=== PATIENT | male | born 1995 | race African-American/Black ===

== ENCOUNTER 2017-07-18 18:58 | Emergency (ER) | payer MEDICAID ==
[~2017-07-18] VITALS: Ht 185.4 cm; Wt 71.0 kg
[~2017-07-18 18:58] MED LIST: DIPH25CA83 PO; FOLI-43 PO; HYDREA PO
[2017-07-19 04:31] LABS: BASOPHILS % 0.8 % (0.0-2.0); EOSINOPHILS % 2.9 % (0.0-5.0); HEMATOCRIT. 23.5 % (42.0-52.0); HEMOGLOBIN. 8.5 g/dL (14.0-18.0); LYMPHOCYTES % 31.8 % (20.0-50.0); MEAN CORPUSCULAR HEMOGLOBIN 25.6 pg (28.0-32.0); MEAN PLATELET VOLUME 10.1 fl (7.4-10.4); MONOCYTES % 12.2 % (2.0-8.0); NEUTROPHILS % 52.3 % (40.0-76.0); PLATELET 228 x1000/uL (130-400); RED BLOOD CELL COUNT 3.31 mill/uL (4.7-6.1); RED CELL DISTRIBUTION WIDTH 24.6 % (11.6-14.6)
[2017-07-19 04:51] LABS: CARBON DIOXIDE 29 mEq/L (21-32); CHLORIDE 106 mEq/L (98-107)
[2017-07-19] MEDS ORDERED: MORPHINE SULFATE 4 MG/ML CPJ (NOT FOR IM USE) IV STA (05:09)
[2017-07-19] MEDS ORDERED: SODIUM CHLORIDE 0.9% 1,000 ML IV ONE (05:09)
[2017-07-19 06:14] LABS: CLARITY URINE CLEAR (CLEAR); COLOR URINE DARK YELLOW (YELLOW); GLUCOSE URINE NEGATIVE (NEGATIVE); KETONES URINE NEGATIVE (NEGATIVE); LEUKOCYTE ESTERASE URINE NEGATIVE (NEGATIVE); NITRITE URINE NEGATIVE (NEGATIVE); OCCULT BLOOD URINE NEGATIVE (NEGATIVE); PH URINE 5.5 (4.5-8.0); PROTEIN URINE NEGATIVE (NEGATIVE); SPECIFIC GRAVITY URINE 1.014 (1.005-1.030)
[2017-07-19] MEDS ORDERED: CEFTRIAXONE 1 G PREMIX 50 ML IV ONE (06:15)
[2017-07-19 06:24] LABS: *AMPHETAMINES SCREEN URINE NEGATIVE (NEGATIVE); *BARBITURATES SCREEN URINE NEGATIVE (NEGATIVE); *BENZODIAZEPINES SCREEN URINE NEGATIVE (NEGATIVE); *COCAINE SCREEN URINE NEGATIVE (NEGATIVE); CANNABINOID URINE SCREEN NEGATIVE (NEGATIVE); METHADONE URINE SCREEN NEGATIVE (NEGATIVE); OPIATES URINE SCREEN NEGATIVE (NEGATIVE); PHENCYCLIDINE URINE SCREEN NEGATIVE (NEGATIVE)
[2017-07-19] MEDS ORDERED: FAMOTIDINE 20MG/2ML VIAL IV ONE (07:30)
[2017-07-19 07:53] LABS: CARBON DIOXIDE 28 mEq/L (21-32); CHLORIDE 107 mEq/L (98-107)
[2017-07-19 09:20] VITALS: BP 117/60
== END 2017-07-19 09:32 | disposition home or self-care (01) ==
LOC: ER 18:58
DX: N48.89 Other specified disorders of penis (principal); D57.1 Sickle-cell disease without crisis; D64.9 Anemia, unspecified
CPT/HCPCS: 36415; 80048; 80053; 80305; 81001; 83690; 85025; 85044; 96361; 96365; 96375; 99284; J0696; J2270; J7030; Z7610

== ENCOUNTER 2020-06-17 01:11 | Emergency (ER) | payer MEDICAID, OTHER ==
[~2020-06-17] VITALS: Ht 180.3 cm; Wt 64.0 kg
[2020-06-17] MEDS ORDERED: SODIUM CHLORIDE 0.9% 1,000 ML IV ONE (02:16)
[2020-06-17] MEDS ORDERED: OLANZAPINE 10 MG/VIAL IM ONE (02:30)
[2020-06-17 03:07] LABS: BASOPHILS % 0.5 % (0.0-2.0); EOSINOPHILS % 1.5 % (0.0-5.0); HEMOGLOBIN. 8.9 g/dL (14.0-18.0); LYMPHOCYTES % 22.6 % (20.0-50.0); MEAN CORPUSCULAR HEMOGLOBIN 27.3 pg (28.0-32.0); MEAN CORPUSCULAR VOLUME 76.5 fL (80.0-94.0); MEAN PLATELET VOLUME 9.9 fl (7.4-10.4); MONOCYTES % 11.2 % (2.0-8.0); NEUTROPHILS % 64.2 % (40.0-76.0); PLATELET 279 x1000/uL (130-400); RED BLOOD CELL COUNT 3.27 mill/uL (4.7-6.1); RED CELL DISTRIBUTION WIDTH 23.3 % (11.6-14.6)
[2020-06-17 03:09] LABS: PLATELET ESTIMATE NORMAL
[2020-06-17 03:10] LABS: CHLORIDE 105 mEq/L (98-107)
[2020-06-17 03:12] LABS: ETHANOL BLOOD < 10 mg/dL
[2020-06-17] MEDS ORDERED: BACITRACIN ZINC OINT UDPKT TOP ONE (04:00)
[2020-06-17] MEDS: KETOROLAC 30MG/ML VIAL IV SCH ×2 (05:55→06:44)
[2020-06-17 06:23] LABS: CLARITY URINE CLEAR (CLEAR); COLOR URINE DARK YELLOW (YELLOW); KETONES URINE NEGATIVE (NEGATIVE); LEUKOCYTE ESTERASE URINE NEGATIVE (NEGATIVE); NITRITE URINE NEGATIVE (NEGATIVE); OCCULT BLOOD URINE NEGATIVE (NEGATIVE); PROTEIN URINE NEGATIVE (NEGATIVE)
[2020-06-17 06:35] LABS: *AMPHETAMINES SCREEN URINE NEGATIVE (NEGATIVE); *BARBITURATES SCREEN URINE NEGATIVE (NEGATIVE); *BENZODIAZEPINES SCREEN URINE NEGATIVE (NEGATIVE); *COCAINE SCREEN URINE NEGATIVE (NEGATIVE); METHADONE URINE SCREEN NEGATIVE (NEGATIVE); OPIATES URINE SCREEN NEGATIVE (NEGATIVE)
[2020-06-17 06:36] LABS: CANNABINOID URINE SCREEN NEGATIVE (NEGATIVE); PHENCYCLIDINE URINE SCREEN NEGATIVE (NEGATIVE)
[2020-06-17 07:58] VITALS: BP 103/71
== END 2020-06-17 08:01 | disposition home or self-care (01) ==
LOC: ER 01:11
DX: M79.631 Pain in right forearm (principal); S80.212A Abrasion, left knee, initial encounter; S50.01XA Contusion of right elbow, initial encounter; D57.1 Sickle-cell disease without crisis; D64.9 Anemia, unspecified; V43.52XA Car driver injured in collision with other type car in traffic accident, initial encounter; Y93.9 Activity, unspecified; Y92.410 Unspecified street and highway as the place of occurrence of the external cause; Z90.49 Acquired absence of other specified parts of digestive tract
CPT/HCPCS: 36415; 70450; 70486; 71045; 72125; 73080; 73090; 73562; 80053; 80305; 80307; 80320; 80329; 81003; 82140; 83690; 85025; 93005; 96361; 96372; 96374; 99285; J1885; J3490; J7030; G0480

== ENCOUNTER 2020-06-17 11:12 | Emergency (ER) | payer OTHER ==
[~2020-06-17] VITALS: Ht 185.4 cm; Wt 64.0 kg
[2020-06-17] MEDS ORDERED: HYDROCODONE/ACETAMINOPHEN 5/325MG TABLET PO ONE (11:45)
[2020-06-17 13:24] VITALS: BP 155/68
== END 2020-06-17 13:24 | disposition home or self-care (01) ==
LOC: ER 11:21
DX: M79.631 Pain in right forearm (principal); R07.81 Pleurodynia; V43.52XA Car driver injured in collision with other type car in traffic accident, initial encounter; Y93.9 Activity, unspecified; Y92.410 Unspecified street and highway as the place of occurrence of the external cause
CPT/HCPCS: 99283

== ENCOUNTER 2021-01-13 00:50 | Emergency (ER) | payer MEDICAID, OTHER ==
[~2021-01-13] VITALS: Ht 188 cm; Wt 65.0 kg
[~2021-01-13 00:50] MED LIST changes: -DIPH25CA83 PO; +HYDR500C18 PO; -HYDREA PO
[2021-01-13] MEDS ORDERED: KETOROLAC 60MG/2ML VIAL IM ONE (01:15)
[2021-01-13 02:08] VITALS: BP 125/75
[2021-01-13] MEDS ORDERED: AMOX-424 MT (02:40)
[2021-01-13] MEDS ORDERED: IBUP-2029 MT (02:40)
== END 2021-01-13 03:39 | disposition home or self-care (01) ==
LOC: ER 00:50
DX: K04.01 Reversible pulpitis (principal); D57.1 Sickle-cell disease without crisis
CPT/HCPCS: 96372; 99283; J1885

== ENCOUNTER 2021-01-13 03:43 | Emergency (ER) | payer MEDICAID ==
[~2021-01-13] VITALS: Ht 188 cm; Wt 94.0 kg
[~2021-01-13 03:43] MED LIST changes: +AMOX-424 MT; +IBUP-2029 MT
[2021-01-13 03:45] VITALS: BP 129/64
== END 2021-01-13 04:11 | disposition home or self-care (01) ==
LOC: ER 03:43
DX: R10.9 Unspecified abdominal pain (principal); D57.1 Sickle-cell disease without crisis
CPT/HCPCS: 99281

== ENCOUNTER 2021-09-04 03:11 | Inpatient (IN) | payer MEDICAID, OTHER ==
[~2021-09-04] VITALS: Ht 188 cm; Wt 66.7 kg
[2021-09-04] MEDS ORDERED: ONDANSETRON HCL 4MG/2ML INJ IV STA (04:01)
[2021-09-04] MEDS ORDERED: MORPHINE SULFATE 4 MG/ML CPJ (NOT FOR IM USE) IV STA (04:01)
[2021-09-04] MEDS ORDERED: SODIUM CHLORIDE 0.9% 1,000 ML IV ONE (04:15)
[2021-09-04] MEDS ORDERED: MORPHINE SULFATE 2 MG/ML CPJ (NOT FOR IM USE) IV NR (04:15)
[2021-09-04 04:26] LABS: CHLORIDE 107 mEq/L (98-107)
[2021-09-04 04:28] LABS: BASOPHILS % 1.2 % (0.0-2.0); HEMATOCRIT. 26.2 % (42.0-52.0); HEMOGLOBIN. 9.1 g/dL (14.0-18.0); LYMPHOCYTES % 37.5 % (20.0-50.0); MEAN CORPUSCULAR HEMOGLOBIN 26.5 pg (28.0-32.0); MEAN CORPUSCULAR VOLUME 76.3 fL (80.0-94.0); MEAN PLATELET VOLUME 10.8 fl (7.4-10.4); MONOCYTES % 12.6 % (2.0-8.0); NEUTROPHILS % 46.7 % (40.0-76.0); PLATELET 229 x1000/uL (130-400); RED BLOOD CELL COUNT 3.44 mill/uL (4.7-6.1); RED CELL DISTRIBUTION WIDTH 21.6 % (11.6-14.6)
[2021-09-04] MEDS ORDERED: IBUP-2028 MT (06:31)
[2021-09-04] MEDS ORDERED: HYDR-4001 MT (06:31)
[2021-09-04 06:39] LABS: CLARITY URINE CLEAR (CLEAR); COLOR URINE DARK YELLOW (YELLOW); SPECIFIC GRAVITY URINE 1.011 (1.005-1.030)
[2021-09-04 06:41] LABS: KETONES URINE NEGATIVE (NEGATIVE); LEUKOCYTE ESTERASE URINE TRACE (NEGATIVE); NITRITE URINE NEGATIVE (NEGATIVE); OCCULT BLOOD URINE NEGATIVE (NEGATIVE); PROTEIN URINE NEGATIVE (NEGATIVE)
[2021-09-04] MEDS ORDERED: MORPHINE SULFATE 4 MG/ML CPJ (NOT FOR IM USE) IV ONE ×2 (07:45→10:30)
[2021-09-04] MEDS ORDERED: MORPHINE SULFATE 2 MG/ML CPJ (NOT FOR IM USE) IV ONE (08:15)
[2021-09-04] MEDS: MORPHINE SULFATE 2 MG/ML CPJ (NOT FOR IM USE) IV NR ×2 (11:16→13:49)
[2021-09-04] MEDS ORDERED: ACETAMINOPHEN 325MG TABLET PO PRN (13:15)
[2021-09-04] MEDS ORDERED: CLONIDINE 0.1MG TABLET PO PRN (13:15)
[2021-09-04] MEDS ORDERED: ONDANSETRON HCL 4MG/2ML INJ IV PRN (13:15)
[2021-09-04] MEDS: SODIUM CHLORIDE 0.9% 1,000 ML IV SCH (13:30)
[2021-09-04] MEDS: HYDROMORPHONE HCL/PF 2MG/ML CPJ IV PRN ×4 (16:04→22:12)
[2021-09-04] MEDS: ENOXAPARIN 40MG/0.4ML SYR SUBCUT SCH (16:06)
[2021-09-04] MEDS: DIPHENHYDRAMINE 50MG/ML VIAL IV PRN ×2 (16:51→21:21)
[2021-09-04 21:49] VITALS: BP 129/71
[2021-09-04 22:00] VITALS: BP 129/71
[2021-09-05] VITALS: BP 132/73
[2021-09-05] MEDS: SODIUM CHLORIDE 0.9% 1,000 ML IV SCH ×3 (00:56→13:24)
[2021-09-05] MEDS: HYDROMORPHONE HCL/PF 2MG/ML CPJ IV PRN ×7 (01:13→21:58)
[2021-09-05 04:00] VITALS: BP 129/68
[2021-09-05] MEDS: DIPHENHYDRAMINE 50MG/ML VIAL IV PRN ×3 (04:55→22:45)
[2021-09-05 08:00] VITALS: BP 131/69
[2021-09-05 12:00] VITALS: BP 128/72
[2021-09-05] MEDS ORDERED: HYDROMORPHONE HCL/PF 2MG/ML CPJ IV PRN (12:00)
[2021-09-05] MEDS ORDERED: NALOXONE HCL 0.4MG/ML VIAL IV PRN (12:15)
[2021-09-05] MEDS: FOLIC ACID 1MG TABLET PO SCH (13:10)
[2021-09-05] MEDS: ENOXAPARIN 40MG/0.4ML SYR SUBCUT SCH (15:32)
[2021-09-05 16:00] VITALS: BP 135/70
[2021-09-05 20:00] VITALS: BP 130/60
[2021-09-06] VITALS: BP 129/74
[2021-09-06] MEDS: HYDROMORPHONE HCL/PF 2MG/ML CPJ IV PRN ×7 (00:13→20:23)
[2021-09-06 03:00] VITALS: BP 119/57
[2021-09-06] MEDS: DIPHENHYDRAMINE 50MG/ML VIAL IV PRN ×4 (03:40→20:54)
[2021-09-06] MEDS: SODIUM CHLORIDE 0.9% 1,000 ML IV SCH ×2 (06:04→15:46)
[2021-09-06 08:00] VITALS: BP 117/69
[2021-09-06] MEDS: FOLIC ACID 1MG TABLET PO SCH (08:47)
[2021-09-06 12:00] VITALS: BP 123/66
[2021-09-06] MEDS: HYDROXYUREA 500MG CAPSULE PO SCH (13:59)
[2021-09-06] MEDS: ENOXAPARIN 40MG/0.4ML SYR SUBCUT SCH ×2 (15:00→15:46)
[2021-09-06 16:00] VITALS: BP 126/70
[2021-09-06 20:00] VITALS: BP 134/82
[2021-09-07] VITALS: BP 140/73
[2021-09-07] MEDS: SODIUM CHLORIDE 0.9% 1,000 ML IV SCH ×3 (00:35→22:45)
[2021-09-07] MEDS: HYDROMORPHONE HCL/PF 2MG/ML CPJ IV PRN ×5 (00:38→22:45)
[2021-09-07] MEDS: DIPHENHYDRAMINE 50MG/ML VIAL IV PRN ×4 (01:31→16:05)
[2021-09-07 04:00] VITALS: BP 108/70
[2021-09-07 08:00] VITALS: BP 117/60
[2021-09-07] MEDS: FOLIC ACID 1MG TABLET PO SCH (08:49)
[2021-09-07] MEDS: HYDROXYUREA 500MG CAPSULE PO SCH ×2 (08:49→16:21)
[2021-09-07 12:00] VITALS: BP 120/67
[2021-09-07] MEDS: ENOXAPARIN 40MG/0.4ML SYR SUBCUT SCH (15:00)
[2021-09-07 16:00] VITALS: BP 122/68
[2021-09-07 16:23] LABS: BASOPHILS % 0.7 % (0.0-2.0); EOSINOPHILS % 4.5 % (0.0-5.0); HEMATOCRIT. 23.8 % (42.0-52.0); HEMOGLOBIN. 8.7 g/dL (14.0-18.0); LYMPHOCYTES % 17.1 % (20.0-50.0); MEAN CORPUSCULAR HEMOGLOBIN 27.1 pg (28.0-32.0); MEAN CORPUSCULAR VOLUME 74.5 fL (80.0-94.0); MEAN PLATELET VOLUME 10.8 fl (7.4-10.4); MONOCYTES % 14.1 % (2.0-8.0); NEUTROPHILS % 63.6 % (40.0-76.0); PLATELET 198 x1000/uL (130-400); RED BLOOD CELL COUNT 3.19 mill/uL (4.7-6.1); RED CELL DISTRIBUTION WIDTH 24.6 % (11.6-14.6)
[2021-09-07 17:02] LABS: CHLORIDE 104 mEq/L (98-107)
[2021-09-07 20:00] VITALS: BP 120/65
[2021-09-08] VITALS: BP 127/76
[2021-09-08] MEDS: DIPHENHYDRAMINE 50MG/ML VIAL IV PRN ×3 (00:10→10:35)
[2021-09-08] MEDS: HYDROMORPHONE HCL/PF 2MG/ML CPJ IV PRN ×3 (03:00→14:24)
[2021-09-08 04:00] VITALS: BP 121/68
[2021-09-08] MEDS: SODIUM CHLORIDE 0.9% 1,000 ML IV SCH (07:30)
[2021-09-08 08:00] VITALS: BP 115/55
[2021-09-08] MEDS: FOLIC ACID 1MG TABLET PO SCH (08:45)
[2021-09-08] MEDS: HYDROXYUREA 500MG CAPSULE PO SCH (08:45)
[2021-09-08 14:12] VITALS: BP 115/55
[2021-09-08] MEDS ORDERED: HYDR-4001 MT (15:48)
[2021-09-08 16:00] VITALS: BP 129/71
== END 2021-09-08 18:50 | disposition home or self-care (01) | DRG 662 ==
LOC: ER 03:11 → EDBEDREQ 12:40 → EDBEDREQTM 12:40 → ENRESERV 20:27 → 8WST 21:00 → 6EST 09-06 03:03
PROVIDERS: ADMIT Internal Medicine; ATTEND Internal Medicine
DX: D57.00 Hb-SS disease with crisis, unspecified (principal); E80.6 Other disorders of bilirubin metabolism; J32.9 Chronic sinusitis, unspecified; Z79.1 Long term (current) use of non-steroidal anti-inflammatories (NSAID); Z79.899 Other long term (current) drug therapy; Z90.49 Acquired absence of other specified parts of digestive tract
CPT/HCPCS: 36415; 71045; 73130; 74176; 80048; 80053; 81003; 82248; 85025; 85044; 85660; 93005; 93970; 99285; J1170; J1200; J1650; J2270; J2405; J7030

== ENCOUNTER 2021-10-26 23:08 | Emergency (ER) | payer MEDICAID, OTHER ==
[~2021-10-26] VITALS: Ht 188 cm; Wt 64.0 kg
[~2021-10-26 23:08] MED LIST changes: +HYDR-4001 MT; +IBUP-2028 MT
[2021-10-27] MEDS ORDERED: MORPHINE SULFATE 4 MG/ML CPJ (NOT FOR IM USE) IV STA (02:18)
[2021-10-27] MEDS ORDERED: SODIUM CHLORIDE 0.9% 1,000 ML IV ONE ×2 (02:30→06:30)
[2021-10-27] MEDS ORDERED: IBUP-2029 MT (03:25)
[2021-10-27 03:57] LABS: CHLORIDE 106 mEq/L (98-107)
[2021-10-27 04:00] LABS: BASOPHILS % 0.7 % (0.0-2.0); EOSINOPHILS % 2.4 % (0.0-5.0); HEMATOCRIT. 24.3 % (42.0-52.0); HEMOGLOBIN. 8.7 g/dL (14.0-18.0); LYMPHOCYTES % 35.1 % (20.0-50.0); MEAN CORPUSCULAR HEMOGLOBIN 27.7 pg (28.0-32.0); MEAN CORPUSCULAR VOLUME 77.2 fL (80.0-94.0); MEAN PLATELET VOLUME 10.4 fl (7.4-10.4); MONOCYTES % 14.3 % (2.0-8.0); NEUTROPHILS % 47.5 % (40.0-76.0); PLATELET 254 x1000/uL (130-400); RED BLOOD CELL COUNT 3.15 mill/uL (4.7-6.1); RED CELL DISTRIBUTION WIDTH 23.5 % (11.6-14.6)
[2021-10-27] MEDS ORDERED: DIPHENHYDRAMINE 50MG/ML VIAL IV ONE (05:15)
[2021-10-27] MEDS ORDERED: KETOROLAC 30MG/ML VIAL IV STA (06:21)
[2021-10-27 06:46] LABS: CLARITY URINE CLEAR (CLEAR); COLOR URINE DARK YELLOW (YELLOW); KETONES URINE NEGATIVE (NEGATIVE); LEUKOCYTE ESTERASE URINE TRACE (NEGATIVE); NITRITE URINE NEGATIVE (NEGATIVE); OCCULT BLOOD URINE NEGATIVE (NEGATIVE); PH URINE 6.5 (4.5-8.0); PROTEIN URINE NEGATIVE (NEGATIVE); SPECIFIC GRAVITY URINE 1.014 (1.005-1.030)
[2021-10-27 09:05] VITALS: BP 114/63
== END 2021-10-27 09:07 | disposition home or self-care (01) ==
LOC: ER 23:08
DX: D57.00 Hb-SS disease with crisis, unspecified (principal)
CPT/HCPCS: 36415; 71045; 73130; 80053; 81003; 83690; 85025; 85044; 96361; 96374; 96375; 99284; J1200; J1885; J2270; J7030

== ENCOUNTER 2021-10-27 09:08 | Inpatient (IN) | payer OTHER ==
[~2021-10-27] VITALS: Ht 182.9 cm; Wt 63.7 kg
[2021-10-27] MEDS ORDERED: MORPHINE SULFATE 4 MG/ML CPJ (NOT FOR IM USE) IV STA (09:29)
[2021-10-27] MEDS ORDERED: KETOROLAC 30MG/ML VIAL IV STA (09:29)
[2021-10-27] MEDS ORDERED: ONDANSETRON HCL 4MG/2ML INJ IV STA (09:29)
[2021-10-27] MEDS ORDERED: SODIUM CHLORIDE 0.9% 1,000 ML IV ONE (09:30)
[2021-10-27] MEDS ORDERED: DIPHENHYDRAMINE 50MG/ML VIAL IV ONE (10:00)
[2021-10-27 10:13] LABS: BASOPHILS % 0.7 % (0.0-2.0); EOSINOPHILS % 2.5 % (0.0-5.0); HEMATOCRIT. 24.2 % (42.0-52.0); HEMOGLOBIN. 8.7 g/dL (14.0-18.0); LYMPHOCYTES % 32.1 % (20.0-50.0); MEAN CORPUSCULAR HEMOGLOBIN 27.5 pg (28.0-32.0); MEAN CORPUSCULAR VOLUME 76.4 fL (80.0-94.0); MEAN PLATELET VOLUME 10.1 fl (7.4-10.4); MONOCYTES % 14.9 % (2.0-8.0); NEUTROPHILS % 49.8 % (40.0-76.0); PLATELET 242 x1000/uL (130-400); RED BLOOD CELL COUNT 3.17 mill/uL (4.7-6.1); RED CELL DISTRIBUTION WIDTH 22.6 % (11.6-14.6)
[2021-10-27 10:20] LABS: CHLORIDE 111 mEq/L (98-107)
[2021-10-27 10:40] LABS: CLARITY URINE CLEAR (CLEAR); COLOR URINE YELLOW (YELLOW); KETONES URINE NEGATIVE (NEGATIVE); LEUKOCYTE ESTERASE URINE NEGATIVE (NEGATIVE); NITRITE URINE NEGATIVE (NEGATIVE); OCCULT BLOOD URINE NEGATIVE (NEGATIVE); PROTEIN URINE NEGATIVE (NEGATIVE); SPECIFIC GRAVITY URINE 1.008 (1.005-1.030)
[2021-10-27 10:44] LABS: PLATELET ESTIMATE NORMAL
[2021-10-27] MEDS ORDERED: NALOXONE HCL 0.4MG/ML VIAL IV PRN (14:15)
[2021-10-27] MEDS ORDERED: HYDROCODONE/ACETAMINOPHEN 10/325MG TABLET PO PRN ×2 (14:15→22:42)
[2021-10-27] MEDS ORDERED: ACETAMINOPHEN 325MG TABLET PO PRN (14:45)
[2021-10-27] MEDS ORDERED: ONDANSETRON HCL 4MG/2ML INJ IV PRN (14:45)
[2021-10-27] MEDS: SODIUM CHLORIDE 0.45% 1,000 ML IV SCH (15:06)
[2021-10-27] MEDS: KETOROLAC 30MG/ML VIAL IV PRN ×2 (15:06→22:24)
[2021-10-27] MEDS ORDERED: MORPHINE SULFATE 2 MG/ML CPJ (NOT FOR IM USE) IV NR (17:30)
[2021-10-27 21:32] VITALS: BP 112/49
[2021-10-28] VITALS: BP 102/45
[2021-10-28 02:37] VITALS: BP 82/50
[2021-10-28] MEDS: SODIUM CHLORIDE 0.45% 1,000 ML IV SCH (04:06)
[2021-10-28] MEDS: KETOROLAC 30MG/ML VIAL IV PRN (04:36)
[2021-10-28 08:00] VITALS: BP 108/46
[2021-10-28] MEDS ORDERED: FOLIC ACID 1MG TABLET PO SCH (09:00)
[2021-10-28] MEDS ORDERED: MORPHINE SULFATE 2 MG/ML CPJ (NOT FOR IM USE) IV NR (10:45)
[2021-10-28 13:55] VITALS: BP 108/46
== END 2021-10-28 14:15 | disposition home or self-care (01) | DRG 662 ==
LOC: ER 09:08 → 6EST 11:23 → EDBEDREQSVC 13:20 → ENRESERV 19:46
PROVIDERS: ADMIT Internal Medicine; ATTEND Internal Medicine
DX: D57.00 Hb-SS disease with crisis, unspecified (principal); Z20.822 Contact with and (suspected) exposure to COVID-19; Z79.899 Other long term (current) drug therapy
CPT/HCPCS: 36415; 71045; 80053; 81003; 85025; 85044; 99285; C9803; J1200; J1885; J2270; J2405; J7030; U0003; U0005

== ENCOUNTER 2021-10-28 14:38 | Inpatient (IN) | payer OTHER ==
[~2021-10-28] VITALS: Ht 188 cm; Wt 63.5 kg
[2021-10-28] MEDS ORDERED: KETOROLAC 30MG/ML VIAL IV STA (16:15)
[2021-10-28] MEDS ORDERED: HYDROMORPHONE HCL/PF 2MG/ML CPJ IV ONE (16:15)
[2021-10-28] MEDS ORDERED: HYDROMORPHONE HCL/PF 2MG/ML CPJ IV PRN ×2 (16:15)
[2021-10-28] MEDS ORDERED: SODIUM CHLORIDE 0.9% 500 ML IV ONE (16:30)
[2021-10-29] MEDS: ONDANSETRON HCL 4MG/2ML INJ IV PRN ×4 (00:37→22:06)
[2021-10-29 01:10] LABS: BASOPHILS % 1.4 % (0.0-2.0); CHLORIDE 110 mEq/L (98-107); EOSINOPHILS % 1.5 % (0.0-5.0); HEMATOCRIT. 21.2 % (42.0-52.0); HEMOGLOBIN. 7.6 g/dL (14.0-18.0); LYMPHOCYTES % 20.9 % (20.0-50.0); MEAN CORPUSCULAR HEMOGLOBIN 27.3 pg (28.0-32.0); MEAN CORPUSCULAR VOLUME 76.3 fL (80.0-94.0); MEAN PLATELET VOLUME 10.2 fl (7.4-10.4); MONOCYTES % 12.1 % (2.0-8.0); NEUTROPHILS % 64.1 % (40.0-76.0); PLATELET 222 x1000/uL (130-400); RED BLOOD CELL COUNT 2.78 mill/uL (4.7-6.1); RED CELL DISTRIBUTION WIDTH 22.8 % (11.6-14.6)
[2021-10-29] MEDS ORDERED: DIPHENHYDRAMINE 25MG CAPSULE PO ONE (04:15)
[2021-10-29] MEDS ORDERED: NALOXONE HCL 0.4MG/ML VIAL IV PRN (10:30)
[2021-10-29] MEDS: SODIUM CHLORIDE 0.9% 1,000 ML IV SCH ×2 (11:32→20:42)
[2021-10-29 12:00] VITALS: BP 113/63
[2021-10-29] MEDS: HYDROMORPHONE HCL/PF 2MG/ML CPJ IV PRN ×3 (14:09→22:03)
[2021-10-29] MEDS: DIPHENHYDRAMINE 50MG/ML VIAL IV PRN ×2 (15:16→23:04)
[2021-10-29 15:58] VITALS: BP 113/63
[2021-10-29 20:00] VITALS: BP 104/47
[2021-10-30] VITALS: BP 113/61
[2021-10-30] MEDS: ONDANSETRON HCL 4MG/2ML INJ IV PRN ×5 (02:39→23:37)
[2021-10-30] MEDS: HYDROMORPHONE HCL/PF 2MG/ML CPJ IV PRN ×5 (02:41→23:38)
[2021-10-30 04:00] VITALS: BP 111/54
[2021-10-30] MEDS: DIPHENHYDRAMINE 50MG/ML VIAL IV PRN ×3 (05:02→20:50)
[2021-10-30] MEDS: SODIUM CHLORIDE 0.9% 1,000 ML IV SCH ×2 (05:14→15:32)
[2021-10-30 08:00] VITALS: BP 115/57
[2021-10-30] MEDS: FOLIC ACID 1MG TABLET PO SCH (09:07)
[2021-10-30 10:34] LABS: HEMATOCRIT 21.9 % (42.0-52.0); HEMOGLOBIN 8.1 g/dL (14.0-18.0); MEAN CORPUSCULAR HEMOGLOBIN 28.2 pg (28.0-32.0); MEAN CORPUSCULAR VOLUME 76.4 fL (80.0-94.0); PLATELET 186 x1000/uL (130-400); RED BLOOD CELL COUNT 2.87 mill/uL (4.7-6.1); RED CELL DISTRIBUTION WIDTH 24.3 % (11.6-14.6)
[2021-10-30 10:40] LABS: CHLORIDE 108 mEq/L (98-107)
[2021-10-30 12:00] VITALS: BP 118/59
[2021-10-30] MEDS: HYDROXYUREA 500MG CAPSULE PO SCH ×2 (12:39→20:49)
[2021-10-30 16:00] VITALS: BP 113/62
[2021-10-30 20:00] VITALS: BP 106/38
[2021-10-31] VITALS: BP 110/63
[2021-10-31] MEDS: ONDANSETRON HCL 4MG/2ML INJ IV PRN ×5 (03:44→21:05)
[2021-10-31] MEDS: HYDROMORPHONE HCL/PF 2MG/ML CPJ IV PRN ×5 (03:47→20:55)
[2021-10-31 04:00] VITALS: BP 113/65
[2021-10-31] MEDS: DIPHENHYDRAMINE 50MG/ML VIAL IV PRN ×3 (05:14→17:58)
[2021-10-31 07:29] LABS: BASOPHILS % 0.4 % (0.0-2.0); EOSINOPHILS % 3.4 % (0.0-5.0); HEMATOCRIT. 21.5 % (42.0-52.0); HEMOGLOBIN. 7.8 g/dL (14.0-18.0); LYMPHOCYTES % 26.3 % (20.0-50.0); MEAN CORPUSCULAR HEMOGLOBIN 28.1 pg (28.0-32.0); MEAN CORPUSCULAR VOLUME 77.4 fL (80.0-94.0); MEAN PLATELET VOLUME 10.8 fl (7.4-10.4); MONOCYTES % 11.8 % (2.0-8.0); NEUTROPHILS % 58.1 % (40.0-76.0); PLATELET 188 x1000/uL (130-400); RED BLOOD CELL COUNT 2.78 mill/uL (4.7-6.1)
[2021-10-31 07:41] LABS: CHLORIDE 108 mEq/L (98-107)
[2021-10-31 08:00] VITALS: BP 104/61
[2021-10-31] MEDS: FOLIC ACID 1MG TABLET PO SCH (08:45)
[2021-10-31] MEDS: HYDROXYUREA 500MG CAPSULE PO SCH ×2 (08:45→20:52)
[2021-10-31] MEDS: SODIUM CHLORIDE 0.9% 1,000 ML IV SCH ×2 (11:57→11:59)
[2021-10-31 12:00] VITALS: BP 108/44
[2021-10-31 16:00] VITALS: BP 137/62
[2021-10-31 20:00] VITALS: BP 113/61
[2021-11-01] VITALS: BP 106/54
[2021-11-01] MEDS: DIPHENHYDRAMINE 50MG/ML VIAL IV PRN ×5 (00:06→18:17)
[2021-11-01] MEDS: SODIUM CHLORIDE 0.9% 1,000 ML IV SCH ×3 (00:07→17:49)
[2021-11-01] MEDS: ONDANSETRON HCL 4MG/2ML INJ IV PRN ×5 (01:52→20:57)
[2021-11-01] MEDS: HYDROMORPHONE HCL/PF 2MG/ML CPJ IV PRN ×2 (01:54→05:58)
[2021-11-01 04:00] VITALS: BP 115/55
[2021-11-01 08:00] VITALS: BP 121/50
[2021-11-01] MEDS: FOLIC ACID 1MG TABLET PO SCH (08:53)
[2021-11-01] MEDS: HYDROXYUREA 500MG CAPSULE PO SCH ×2 (08:54→21:13)
[2021-11-01] MEDS ORDERED: HYDROMORPHONE HCL 4MG TABLET PO PRN (13:00)
[2021-11-01] MEDS: HYDROMORPHONE HCL 4MG TABLET PO PRN ×2 (15:21→20:56)
[2021-11-01 16:00] VITALS: BP 111/55
[2021-11-01 20:00] VITALS: BP 113/55
[2021-11-02] VITALS: BP 120/54
[2021-11-02] MEDS: DIPHENHYDRAMINE 50MG/ML VIAL IV PRN ×3 (00:49→17:25)
[2021-11-02 04:00] VITALS: BP 105/50
[2021-11-02] MEDS: HYDROMORPHONE HCL 4MG TABLET PO PRN ×4 (04:33→20:10)
[2021-11-02] MEDS: ONDANSETRON HCL 4MG/2ML INJ IV PRN ×4 (04:35→20:09)
[2021-11-02] MEDS: SODIUM CHLORIDE 0.9% 1,000 ML IV SCH ×2 (04:35→13:55)
[2021-11-02] MEDS: FOLIC ACID 1MG TABLET PO SCH (08:26)
[2021-11-02] MEDS: HYDROXYUREA 500MG CAPSULE PO SCH ×2 (08:27→20:10)
[2021-11-02 12:00] VITALS: BP 111/54
[2021-11-02 15:53] VITALS: BP 106/48
[2021-11-02 20:00] VITALS: BP 108/39
[2021-11-03] VITALS: BP 120/82
[2021-11-03] MEDS: ONDANSETRON HCL 4MG/2ML INJ IV PRN ×3 (00:53→09:15)
[2021-11-03] MEDS: HYDROMORPHONE HCL 4MG TABLET PO PRN ×3 (00:53→09:16)
[2021-11-03] MEDS: DIPHENHYDRAMINE 50MG/ML VIAL IV PRN ×2 (02:09→10:35)
[2021-11-03 04:00] VITALS: BP 111/51
[2021-11-03] MEDS: SODIUM CHLORIDE 0.9% 1,000 ML IV SCH ×2 (05:14→10:35)
[2021-11-03 08:00] VITALS: BP 111/49
[2021-11-03] MEDS: FOLIC ACID 1MG TABLET PO SCH (09:16)
[2021-11-03] MEDS: HYDROXYUREA 500MG CAPSULE PO SCH (09:16)
[2021-11-03 10:58] VITALS: BP 111/49
== END 2021-11-03 13:48 | disposition home or self-care (01) | DRG 662 ==
LOC: ER 14:51 → 6EST 10-29 04:12 → EDBEDREQ 10-29 04:44 → EDBEDREQDT 10-29 04:44 → EDBEDREQSVC 10-29 04:44 → EDBEDREQTM 10-29 04:44 → ENRESERV 10-29 07:10
PROVIDERS: ADMIT Internal Medicine; ATTEND Internal Medicine
DX: D57.00 Hb-SS disease with crisis, unspecified (principal); R17 Unspecified jaundice; R65.10 Systemic inflammatory response syndrome (SIRS) of non-infectious origin without acute organ dysfunction; D72.829 Elevated white blood cell count, unspecified; E78.5 Hyperlipidemia, unspecified; Z20.822 Contact with and (suspected) exposure to COVID-19; Z79.2 Long term (current) use of antibiotics; Z79.899 Other long term (current) drug therapy; Z90.49 Acquired absence of other specified parts of digestive tract
CPT/HCPCS: 36415; 71045; 80048; 80053; 85025; 85027; 85044; 86850; 86900; 87426; 99285; J1170; J1200; J2405; J7030; J7040; Q0163